=== PATIENT | female | born 1965 | race Caucasian/White ===

== ENCOUNTER 2017-03-24 18:37 | Emergency (ER) | payer OTHER ==
[~2017-03-24] VITALS: Ht 180.3 cm; Wt 106.9 kg
[~2017-03-24 18:37] MED LIST: MECL25 PO; ZOFR4TAB3 SL
[2017-03-24 18:43] VITALS: BP 160/74; PULSE 90; RESP 18; TEMP 98.2; O2SAT 96
[2017-03-24] MEDS ORDERED: TETANUS/DIPHTHERIA TOXOID ADULT 0.5 ML VIAL IM ONE (19:15)
[2017-03-24] MEDS ORDERED: LIDOCAINE 1%/EPINEPHrine 1:100,000 SOLN 20 ML VIAL INFIL ONE (19:15)
--- NOTE | 2017-03-24 19:17 | PD ---
HPI Chief Complaint: Laceration/Skin Injury Time Seen by Provider: 19:00 Travel History International Travel<30 days: No Contact w/Intl Traveler<30days: No Traveled to known affect area: No History of Present Illness HPI 51-year-old female presents to the emergency room for evaluation of a laceration to her left lower leg that occurred just prior to arrival. Patient slipped on her boat and the anchor cut her left lower leg. She also hit her ankle but denies significant pain. She has been ambulatory. Patient states it bled a lot. She wrapped it and came straight to the emergency room without washing it. Unknown last tetanus. Denies chronic medical conditions or daily medications. PFSH Past Medical History Medical History: Denies Significant Hx Diminished Hearing: No Immunizations Current: No Tetanus Vaccination: Unknown Influenza Vaccination: No ?: Not Menopausal: Yes : 1 Para: 1 Past Surgical History Section: Yes Social History Alcohol Use: No Tobacco Use: No Substance Use: No Allergies-Medications (Allergen,Severity, Reaction): Coded Allergies: Penicillin (Verified Allergy, Severe, Rash, 03/24/17) Reported Meds & Prescriptions Reported Meds & Active Scripts Active No Active Prescriptions or Reported Medications Review of Systems Except as stated in HPI: all other systems reviewed are Neg Physical Exam Narrative GENERAL: Well-nourished, well-developed female in no acute distress. Afebrile. Ambulatory. SKIN: Focused skin assessment warm/dry. Mild ecchymosis of the left ankle. There is a 2 cm deep wound to the left tibia. HEAD: Normocephalic. EYES: No scleral icterus. No injection or drainage. NECK: Supple, trachea midline. No JVD or lymphadenopathy. CARDIOVASCULAR: Regular rate and rhythm without murmurs, gallops, or rubs. RESPIRATORY: Breath sounds equal bilaterally. No accessory muscle use. GASTROINTESTINAL: Abdomen soft, non-tender, nondistended. MUSCULOSKELETAL: No cyanosis, or edema. Full range of motion of left lower extremity. 2+ dorsalis pedis pulse. Data Data Last Documented VS Vital Signs Date Time Temp Pulse Resp B/P Pulse Ox O2 Delivery O2 Flow Rate FiO2 03/24/17 19:45 77 18 137/66 97 03/24/17 18:43 98.2 Orders Lidocai-Epi 1%-1:100,000 Inj (Xylocaine- (03/24/17 19:15) Tetanus/Diphtheria Tox Adult (Tetanus/Di (03/24/17 19:15) MDM Medical Decision Making Medical Screen Exam Complete: Yes Emergency Medical Condition: Yes Medical Record Reviewed: Yes Differential Diagnosis Laceration, abrasion, skin avulsion, contusion Narrative Course 51-year-old female presents to the emergency room for evaluation of left lower leg laceration that occurred just prior to arrival. Patient slipped and fell on her boat and cut her leg on an anchor. She has been ambulatory since falling. Denies any other injuries. Tetanus will be updated. Laceration was thoroughly cleansed and then repaired, see procedure note for details. Patient discharged with wound care instructions and told to follow up with a primary care physician or return for worsening symptoms. She understands and agrees to plan. Procedures Procedure Narrative LACERATION LOCATION: Left lower leg LENGTH: 2 cm NUMBER OF STITCHES/STEVE: 5 simple interrupted REPAIR: The area of the laceration was prepped with Betadine and sterilely draped. The laceration was infiltrated with 1% lidocaine with epinephrine. The wound was copiously irrigated and explored without evidence of foreign body , tendon injury or neurovascular injury. The wound was closed using 5-0 Prolene. This was a single layer repair. A sterile dressing was applied. The patient was advised to keep the dressing clean and dry. Patient tolerated the procedure well. Diagnosis Primary Impression: Laceration of leg Qualified Code: S81.812A - Laceration of left lower extremity, initial encounter Referrals: Primary Care Physician Patient Instructions: General Instructions, Laceration (ED) Additional Instructions: Keep wound clean and dry. Apply triple antibiotic ointment daily. Sutures out in 14 days. Follow-up with a primary care physician. Return to the emergency room for worsening symptoms. Scripts No Active Prescriptions or Reported Meds Disposition: 01 DISCHARGE HOME Condition: Stable Sherin Carver Mar 24, 2017 19:17
[2017-03-24 19:45] VITALS: BP 137/66
== END 2017-03-24 19:55 | disposition home or self-care (01) ==
LOC: PHED 18:37
DX: S81.812A Laceration without foreign body, left lower leg, initial encounter (principal); W01.118A Fall on same level from slipping, tripping and stumbling with subsequent striking against other sharp object, initial encounter; Y92.814 Boat as the place of occurrence of the external cause; Z88.0 Allergy status to penicillin; Z23 Encounter for immunization
CPT/HCPCS: 12001; 90471; 90714